=== PATIENT | female | born 1985 | race Hispanic/Latino ===

== ENCOUNTER 2017-09-23 18:49 | Emergency (ER) | payer SELFPAY ==
[~2017-09-23] VITALS: Ht 154.9 cm; Wt 94.2 kg
[2017-09-23 19:10] LABS: APPEARANCE SL.HAZY ((CLEAR)); BILIRUBIN NEGATIVE; BLOOD LARGE; COLOR YELLOW ((YELLOW)); GLUCOSE (STRIP) NEGATIVE; KETONES NEGATIVE; LEUKOCYTES NEGATIVE; NITRITE NEGATIVE; PROTEIN (STRIP) 30; SPECIFIC GRAVITY 1.011 (1.000-1.030); UROBILINOGEN 0.2 MG/DL (0.2-1.0)
[2017-09-23 19:17] LABS: HEMATOCRIT 39.6 % (36.0-46.0); MCH 25.6 PG (29.0-34.0); MCHC 32.8 G/DL (30.0-36.0); PLATELET COUNT 303 K/uL (156-360); RBC DIS.WIDTH-CV 16.7 % (11.8-14.6); RBC DIS.WIDTH-SD 47.3 % (39-53); RED BLOOD COUNT 5.08 M/uL (3.80-5.20); WHITE BLOOD COUNT 15.4 K/uL (4.1-10.2)
[2017-09-23 19:27] LABS: ALBUMIN 4.1 g/dL (3.2-4.8)
[2017-09-23 19:28] LABS: CHLORIDE 105 mEq/L (99-109); POTASSIUM 4.4 mEq/L (3.7-5.4); SODIUM 138 mEq/L (136-147)
[2017-09-23 19:30] LABS: GLUCOSE 114 mg/dL (70-99); TOTAL PROTEIN 7.4 g/dL (6.4-8.3)
[2017-09-23 19:32] LABS: TOTAL BILIRUBIN 0.5 mg/dL (0.0-1.0)
[2017-09-23 19:33] LABS: ALKALINE PHOSPHATASE 108 IU/L (3-129)
[2017-09-23 19:34] LABS: CREATININE 1.9 mg/dL (0.6-1.3); GFR ESTIMATE (CALCULATED) 33 mL/min/
[2017-09-23 19:35] LABS: AST (GOT) 15 IU/L (2-34); UREA NITROGEN (BUN) 22 mg/dL (9-23)
[2017-09-23 19:36] LABS: ALT (GPT) 21 IU/L (3-49)
[2017-09-23 19:40] LABS: BACTERIA RARE /HPF; EPITHELIAL CELLS 1+ /HPF; MUCUS NONE SEEN /LPF; UCUL ADDED? NO; WHITE BLOOD CELLS 0-5 /HPF (0-5)
[2017-09-23 19:55] LABS: QUANTITATIVE HCG < 4.0 MIU/ML
[2017-09-23] MEDS ORDERED: PREDNISONE20 MG PO (20:44)
[2017-09-23] MEDS ORDERED: VENTOLIN HFA18 GM IH (20:44)
[2017-09-23] MEDS ORDERED: FLONASE16 G1 BOTH NARES (20:44)
[2017-09-23] MEDS ORDERED: ZOFRAN4 MG PO (22:20)
[2017-09-23] MEDS ORDERED: FLOMAX0.4 MG PO (22:20)
[2017-09-23] MEDS ORDERED: PERCOCET 5/31 TABLET PO (22:20)
[2017-09-23] MEDS ORDERED: MOTRIN800 MG PO (22:20)
[2017-09-23 22:33] VITALS: BP 118/67
== END 2017-09-23 22:36 | disposition home or self-care (01) ==
LOC: EME 18:49
DX: N20.2 Calculus of kidney with calculus of ureter (principal); R94.4 Abnormal results of kidney function studies; F17.200 Nicotine dependence, unspecified, uncomplicated
CPT/HCPCS: 74176; 80053; 81003; 84702; 85027; 99281; 99284; J1885; J2405; J7120